=== PATIENT | male | born 2000 | race Asian ===

== ENCOUNTER 2020-07-04 14:06 | Emergency (ER) | payer OTHER ==
[~2020-07-04] VITALS: Ht 165.1 cm; Wt 60.0 kg
[2020-07-04 15:23] LABS: CLARITY URINE CLEAR (CLEAR); COLOR URINE YELLOW (YELLOW); KETONES URINE TRACE (NEGATIVE); LEUKOCYTE ESTERASE URINE NEGATIVE (NEGATIVE); NITRITE URINE NEGATIVE (NEGATIVE); OCCULT BLOOD URINE NEGATIVE (NEGATIVE); PROTEIN URINE NEGATIVE (NEGATIVE); SPECIFIC GRAVITY URINE 1.032 (1.005-1.030)
[2020-07-04 16:47] VITALS: BP 111/77
[2020-07-10 08:07] LABS: NEISSERIA GONORRHOEAE NAA Negative (Negative)
== END 2020-07-04 16:48 | disposition home or self-care (01) ==
LOC: ER 14:06 → EDBD 14:06 → ER 16:48
DX: N50.812 Left testicular pain (principal); J45.909 Unspecified asthma, uncomplicated
CPT/HCPCS: 76870; 81003; 87491; 87591; 93976; 99284

== ENCOUNTER 2020-10-16 01:23 | Emergency (ER) | payer OTHER ==
[~2020-10-16] VITALS: Ht 165.1 cm; Wt 48.0 kg
[2020-10-16] MEDS ORDERED: ONDANSETRON HCL 4MG/2ML INJ IV STA (02:39)
[2020-10-16] MEDS ORDERED: SODIUM CHLORIDE 0.9% 1,000 ML IV ONE (02:45)
[2020-10-16 04:30] VITALS: BP 111/72
== END 2020-10-16 04:35 | disposition home or self-care (01) ==
LOC: ER 01:23
DX: T40.7X1A Poisoning by cannabis (derivatives), accidental (unintentional), initial encounter (principal); Y92.9 Unspecified place or not applicable; R42 Dizziness and giddiness; F32.9 Major depressive disorder, single episode, unspecified; Z91.010 Allergy to peanuts
CPT/HCPCS: 93005; 96361; 96374; 99283; J2405; J7030